=== PATIENT | female | born 1985 | race Caucasian/White ===

== ENCOUNTER 2016-10-09 06:49 | Inpatient (IN) | payer OTHER ==
[~2016-10-09] VITALS: Ht 170.2 cm; Wt 124.2 kg
[2016-10-09] VITALS (11 sets, daily range): BP systolic 107–133; BP diastolic 58–78; PULSE 98–125; RESP 16–24; O2SAT 97–100
[2016-10-09] MEDS ORDERED: Lidocaine 2% 5 mL Urojet Topical Jelly Syringe ONE (07:17)
[2016-10-09] MEDS ORDERED: Oxytocin 30 Units/500 mL LR Premix IV ONE (07:34)
[2016-10-09 07:46] LABS: Mean Corpuscular Hemoglobin 31.2 pg (27.0-35.0)
[2016-10-09] MEDS ORDERED: Carboprost 250 mCg/mL Inj IM PRN (07:50)
[2016-10-09] MEDS ORDERED: Oxytocin 30 Units/500 mL LR 30 UNITS in IV Premix 1 EACH IV SCH (07:50)
[2016-10-09] MEDS ORDERED: Methylergonovine 0.2 mg/mL Inj IM PRN (07:50)
[2016-10-09] MEDS ORDERED: Lactated Ringer's 500 ML IV ONE (07:55)
[2016-10-09] MEDS ORDERED: diphenhydrAMINE 25 mg Capsule PO ONE (08:25)
[2016-10-09] MEDS ORDERED: Sodium Chloride LOK Flush 10 mL Syringe IVFLUSH SCH (08:30)
--- NOTE | 2016-10-09 08:30 | NUR ---
Pt requested assistance with baby. Placed baby skin to skin, demo'd position, discussed signs of a good latch and suck, normal behavior and feeding the first day. Advised at awakening baby at least q3hr for feeding, keeping baby warm the first 24hrs, and early exam by baby's PCP.
--- NOTE | 2016-10-09 09:12 | HP ---
[address] [address] HISTORY AND PHYSICAL PATIENT: CHANTEL WAITE : 1985 MR#: [id number] ADMIT: 10/09/2016 JOB ID: [id number] CHIEF COMPLAINT: The patient was transferred from [facility] for hemorrhage. HISTORY OF PRESENTING ILLNESS: This is a 31-year-old, 1, para 1, status post spontaneous vaginal delivery at 2353 hours, on October 08, 2016. Delivered a female , 11 pounds 7 ounces, at the [facility] by cane stripper, Gaby Bray. After delivery of the infant, the placenta was delivered 20 minutes later, intact. With the delivery of the placenta, large blood clots were noted and hemorrhage diagnosis was made, with estimated blood loss of 2100. The patient was given 2 units of Pitocin. First-degree labial and perineal laceration were repaired. The uterus was firmed, then 2 hours later, the patient passed another 200 mL of clotted blood, so she was given 800 mcg of misoprostol buccally, and given 20 units of Pitocin and 0.2 mg of Methergine. Straight cathed for 200 mL. Second stage of labor length was 1 hour and 8 minutes, and 1st stage of labor was 4 hours. Third stage was 20 minutes. The above history was obtained from Ms. Bray, the delivering cane stripper, and records were faxed to be included in the medical records for the patient. Blood pressure before transfer was 100/71 when the patient is laying down, and 90/70 when she is laying down. When she is sitting in the upright position, the blood pressure was 80/unmeasurable diastolic and heart rate was 150. Based on the symptomatic hypertension, the patient was transferred to our hospital. PAST OBSTETRIC HISTORY: One with no complications besides the current hemorrhage, and large for gestational age infant. Diabetic screening was normal per patient. PAST MEDICAL HISTORY: Noncontributory. PAST SURGICAL HISTORY: [place] tooth extraction and facial cyst removal. GYNECOLOGIC HISTORY: Menarche at age 14. Regular menstrual cycles. No history of sexually transmitted infections. Positive abnormal Pap smear 2012, followed by colposcopy and repeat Pap smears were within normal limits as per patient's history. ALLERGIES: No known drug allergies. SOCIAL HISTORY: Denies smoking, alcohol, or illicit drug abuse. FAMILY HISTORY: Mother is healthy. Father at age 44 secondary to cardiac arrest. Paternal grandfather has a cardiac arrest at 70 years old. Maternal grandmother and maternal grand-aunt has history of breast cancer. Maternal grandfather has a history of cancer and at age 40, unknown primary organ. PHYSICAL EXAM: General: Alert and oriented to time, place, and person. Blood pressure 126/69, and heart rate 123, temperature 37.2, oxygen saturation 97% on room air. Head is normocephalic, atraumatic. Neck is supple. Chest: Equal air entry bilaterally. No added sounds. Cardiovascular: Regular rate and rhythm. Abdomen: Soft, no tenderness, and firm uterus. Lochia minimal. No clots. Lower extremities: Positive pulse bilaterally. LABORATORIES: White blood cells 19.7, hemoglobin 8.2, hematocrit 24.2%, platelets 217. The patient's hemoglobin in June was 14.2. ASSESSMENT: This is a 31-year-old, 1, para 1, status post spontaneous vaginal delivery at 2353 on October 08, 2016. The patient is day #1, she delivered just before midnight. Transferred for symptomatic anemia secondary to hemorrhage that has resolved and under control. No active heavy bleeding at this time. PLAN: A bolus of 500 mL LR was given and 30 units of Pitocin in 500 mL running at a rate of 125 mL/h. The patient was counseled regarding blood transfusion, risks, benefits, and alternative. Indication of blood transfusion is symptomatic anemia. The patient desires to proceed with blood transfusion. Will transfuse 2 units. Kelly catheter was inserted. Will continue to monitor in and out fluids. Post transfusion hemoglobin is ordered and coagulation profile was ordered.
[2016-10-09 09:24] LABS: INR 0.93 ratio
--- NOTE | 2016-10-09 14:00 | NUR ---
Admission note: Pt. arrived here from [facility] this morning at approx. 0700. She transferred from [facility] to bed without problems. Vital signs were stable upon arrival and she was alert and oriented. Her planning division superintendent, Gaby accompanied her. Her bleeding was moderate and fundus firm. She delivered by at 2353 her first baby with 1st degree perineal and labial tears that were repaired. Her baby girl was 11#7 oz and delivered after a 1 hour 8 minutes second stage and a rapid first stage of labor. She arrived at the birthing center completely dilated. Report from the planning division superintendent was that pt. had 2100 cc of clots and blood expelled in the first hour' 1 liter LR and 10 units of IM pitocin was administered. The pt. received 20 units of IV pitocin in LR and 800 mcg. of buccal misoprostin at 0200 and .2 mg of methergin at 0210. She later received LR #3 with 20 units of pitocin. Her bleeding subsided, her B/P wa low and she was tachycardic. She was unable to ambulate without syncope and decision to transfer her here was made. She has a bob catheter in place that is now draining pale yellow urine. A second 18 g. IV was started by ROSALBA Enriqeuz. She received 1 bag of 30 units oxytocin in 500 cc LR delivered at 150 cc per hour and is now on #2 at 75 cc per hour. She was pretreated with benadryl and tylenol and is currently on her 2nd unit of RBCs. Her fundus has been firm, she has had moderate bleeding with 1 small clot noted when bob was placed. Her hgb 8.2, hct 24.2%, platelets 217,000 and wbcs 19[address] Li saw pt. soon after her arrival. Pt. is now eating a general diet and encouraged her to rest after eating. No transfusion reaction noted.
[2016-10-09] MEDS ORDERED: 0.9% Sodium Chloride 500 ML IV SCH (16:00)
--- NOTE | 2016-10-09 18:27 | NUR ---
Leticia DCd at 1815 after pt. was up to bathroom for mare-care without syncope and MD provided order for DC per telephone. UOP 700 cc this shift. IV intake 1814 cc including 2 units RBCs and 400 cc NS. PO intake 1000. Lab is here now to draw H&H.
--- NOTE | 2016-10-09 23:09 | NUR ---
Initial assessment of fundus and bleeding at 2039 pt with 1/2pad of blood over 4hours, no clots, FF -1 BTU. Saline locked finished pitocin and LR for reassuring bleeding amt and fundal tone. Continue to monitor closely. Pt stable up to BR at 2200, voided 450mls. 2200 h/h slightly increased at 24.7 and 8.2.
[2016-10-10 00:45] VITALS: BP 117/59; PULSE 105; RESP 16; O2SAT 99
--- NOTE | 2016-10-10 02:35 | PCM.DIOB ---
Obstetrical Disch Instruction Date of Service: Oct 10, 2016 Dates of Hospitalization Date of Hospital Admission Oct 09, 2016 at 07:05 Providers Admitting Physician: Thu Garcia MD Primary Care Physician: Other,Physician Attending Physician: Thu Garcia MD Discharge Diagnosis Discharge Diagnosis Status post transfusion for symptomatic anemia Post hemorrhage resolved day #2 Problems: Diet Discharge Diet: No restrictions Activity Discharge Activity-General: Pelvic Rest for 6 weeks (no sex, no douching, and no tampons ), Activity as pain allows, No lifting >15 pounds for 2 weeks, No lifting >10 pounds for 4-6 weeks Dressing and Incisional Care Hygiene: May shower, Perineal care, Sitz bath, Dermoplast spray, Witch Gemma pads Follow Up Plan Follow-up Provider (F9): Thu Garcia MD Follow-up appointment: Weeks (two) Call your provider for: Fever or Chills, Shortness of breath, Heavy vaginal bleeding, Heavy bleeding, Epigastric pain, Excessive constipation, Vaginal discomfort, Red painful breasts, Other (headache, change in vision, nausea/ vomiting, leg swelling, change in color or pain. ) Thu Garcia MD Oct 10, 2016 02:35
[2016-10-10] MEDS ORDERED: DOCU-41 PO (02:38)
[2016-10-10] MEDS ORDERED: FERR-83 PO (02:38)
[2016-10-10] MEDS ORDERED: IBUP-1827 PO (02:38)
--- NOTE | 2016-10-10 02:39 | PCM.DC.OB ---
Obstetrical Discharge Summary Date of Service Oct 10, 2016 Date of hospital admission Oct 09, 2016 at 07:05 Providers Admitting Physician: Valentina Hernandez MD Primary Care Physician: Other,Physician Attending Physician: Valentina Hernandez MD Hospital Course: This is a 31-year-old, 1, para 1, status post spontaneous vaginal delivery at 2353 on October 08, 2016. Patient was transferred for symptomatic anemia secondary to hemorrhage that has resolved and under control. No active heavy S/P two units PRBC. At discharge patient feeling well, ambulating, tolerating regular diet and urinating without difficulty. Lochia is minimal. Patient denies SOB or palpitation. Hgb post transfusion stable at 8-8.7 VS - Last 72 Hours, by Label Date Time Temp Pulse Resp B/P Pulse Ox O2 Delivery O2 Flow Rate FiO2 10/10/16 03:44 36.6 103 18 138/80 96 Room Air 10/10/16 00:45 36.8 105 16 117/59 99 Room Air 10/09/16 21:00 36.9 106 18 118/78 99 Room Air 10/09/16 16:05 36.5 104 16 127/58 10/09/16 13:25 36.4 107 20 133/77 10/09/16 13:10 36.7 118 18 121/62 10/09/16 12:50 37.3 114 18 111/69 10/09/16 10:00 37.0 125 20 107/63 10/09/16 10:00 37.0 125 24 107/63 99 Room Air 10/09/16 09:45 37.0 98 24 114/63 10/09/16 09:45 37.0 98 24 114/63 99 Room Air 10/09/16 09:25 37.2 114 22 129/71 100 Room Air 10/09/16 08:24 37.0 114 20 123/65 97 Room Air 10/09/16 08:00 114 133/63 10/09/16 07:10 37.2 123 20 126/69 Room Air Laboratory Tests 72 Hours Test 10/09/16 07:30 10/09/16 08:20 10/09/16 18:35 10/09/16 21:52 White Blood Count 19.7th/mm3 (3.8-10.1) Red Blood Count 2.63mil/mm3 (3.90-5.20) Hemoglobin 8.2g/dL (12.0-15.6) 8.0g/dL (12.0-15.6) 8.2g/dL (12.0-15.6) Hematocrit 24.2% (35.0-46.0) 23.8% (35.0-46.0) 24.7% (35.0-46.0) Mean Corpuscular Volume 92.0fL (81-100) Mean Corpuscular Hemoglobin 31.2pg (27.0-35.0) Mean Corpuscular Hemoglobin Concent 33.9% (32.0-37.0) Red Cell Distribution Width 13.2% (12.3-15.4) Platelet Count 217bil/L (150-400) Prothrombin Time 9.9sec (8.1-12.5) Prothromb Time International Ratio 0.93ratio Activated Partial Thromboplast Time 29.3sec (22.8-33.0) Fibrinogen 348mg/dL (157-380) Sodium Level 132mEq/L (134-144) Potassium Level 4.9mEq/L (3.5-5.2) Chloride Level 103mEq/L (97-108) Carbon Dioxide Level 17mmol/L (18-29) Blood Urea Nitrogen 13mg/dL (6-20) Creatinine 0.98mg/dL (0.57-1.00) Estimat Glomerular Filtration Rate 96mL/min (>59) Glucose Level 110mg/dL (60-99) Calcium Level 8.4mg/dL (8.5-10.1) Total Bilirubin 0.2mg/dL (0.0-1.2) Aspartate Amino Transf (AST/SGOT) 27U/L (0-50) Alanine Aminotransferase (ALT/SGPT) 11U/L (0-32) Alkaline Phosphatase 105U/L (25-150) Total Protein 4.4g/dL (6.4-8.4) Albumin 2.2g/dL (3.4-5.0) Test 10/10/16 06:50 White Blood Count 17.0th/mm3 (3.8-10.1) Red Blood Count 2.85mil/mm3 (3.90-5.20) Hemoglobin 8.7g/dL (12.0-15.6) Hematocrit 26.3% (35.0-46.0) Mean Corpuscular Volume 92.3fL (81-100) Mean Corpuscular Hemoglobin 30.5pg (27.0-35.0) Mean Corpuscular Hemoglobin Concent 33.1% (32.0-37.0) Red Cell Distribution Width 14.0% (12.3-15.4) Platelet Count 207bil/L (150-400) Discharge Diagnosis Discharge Diagnosis Status post transfusion for symptomatic anemia Post hemorrhage resolved day #2 Problems: Disposition: home. Discharge condition: stable. Diet Discharge Diet: No restrictions Activity Discharge Activity-General: Pelvic Rest for 6 weeks (no sex, no douching, and no tampons ), Activity as pain allows, No lifting >15 pounds for 2 weeks, No lifting >10 pounds for 4-6 weeks Dressing and Incisional Care Hygiene: May shower, Perineal care, Sitz bath, Dermoplast spray, Witch Gemma pads Follow Up Plan Follow-up Provider (F9): Valentina Hernandez MD Follow-up appointment: Weeks (two) Call your provider for: Fever or Chills, Shortness of breath, Heavy vaginal bleeding, Heavy bleeding, Epigastric pain, Excessive constipation, Vaginal discomfort, Red painful breasts, Other (headache, change in vision, nausea/ vomiting, leg swelling, change in color or pain. ) Docusate Sodium (Colace) 100 Mg Capsule 100 MG PO BID PRN PRN For Constipation Prescribed by: VALENTINA HERNANDEZ MD Ferrous Sulfate (Ferrous Sulfate) 325 Mg Tablet 325 MG PO TID Prescribed by: VALENTINA HERNANDEZ MD Ibuprofen (Ibuprofen) 600 Mg Tablet 600 MG PO QID PRN PRN For Pain Prescribed by: MD Jose AGUILAR Omaima A MD Oct 10, 2016 02:39
[2016-10-10 03:44] VITALS: BP 138/80; PULSE 103; RESP 18; O2SAT 96
--- NOTE | 2016-10-10 06:22 | NUR ---
shift summary: VSS. I/O over shift 200 IVF, 900 PO; Output pad weights 30mls and 16mls, no clots, 1200 CYUO. Pt color more pink, steady on feet, no dizziness or dyspnea. FF throughout assessments with discontinued pitocin at 2200. Minimal pain reported to perineum, requests no meds when discussed. BF with assistance, difficult r/t fussy and pt has small jacob to nipples, utilizing nipple shield and assisting with manual expression, pump brought in to assist with production and supplement for infant poor feeds, minimal colostrom output. Awaiting am CBC results. Continue to assess bleeding and s/s anemia after pph. Assist with BF and place consult for . RN to report to laith BOSS. Addendum: 10/10/16 at 0751 by CHELO TIJERINA RN Pad change at 0700. Light matty linares. Voided large amt 900mls. Dr. Adame in to see pt, discharge orders for later today if appropriate. Parents may need to room in for NB status. Report provided to laith Hendrix
[2016-10-10 07:29] LABS: Mean Corpuscular Hemoglobin 30.5 pg (27.0-35.0); Mean Corpuscular Volume 92.3 fL (81-100)
[2016-10-10 10:20] VITALS: PULSE 94; RESP 22; O2SAT 96
[2016-10-10 14:46] VITALS: BP 110/55; PULSE 77; RESP 18
--- NOTE | 2016-10-10 15:35 | NUR ---
Patient bleeding is scant, fundus firm at the U. Breast feeding baby with help. Taking tylenol for good pain relief. Saline locks removed. Discharge teaching done and all questions answered. VSS my shift.
== END 2016-10-10 15:29 | disposition home or self-care (01) | DRG 776 ==
LOC: FBC 06:49 → UNDOADMIN 06:49 → FBC 07:05
PROVIDERS: ADMIT Obstetrics & Gynecology; ATTEND Obstetrics & Gynecology
PROC: 30233N1 Transfusion of Nonautologous Red Blood Cells into Peripheral Vein, Percutaneous Approach (ICD-10-PCS; principal; 2016-10-09)
DX: O72.2 Delayed and secondary postpartum hemorrhage (principal); O90.81 Anemia of the puerperium